=== PATIENT | male | born 1965 | race Caucasian/White ===

== ENCOUNTER 2016-04-20 14:56 | Emergency (ER) | payer OTHER ==
[~2016-04-20] VITALS: Ht 167.6 cm; Wt 152.0 kg
[~2016-04-20 14:56] MED LIST: ALBU17I; ASPI81TA82 PO; DIFL500T PO; GLYB1TAB50 PO; HYCOS PO; LEVA750T9 PO; LOVA10TA PO; VENTAER INH; humulin 70/30 SQ
[2016-04-20 15:00] VITALS: BP 116/64; PULSE 74; RESP 20; TEMP 98
[2016-04-20] MEDS ORDERED: METO25TA3 PO (15:20)
[2016-04-20] MEDS ORDERED: EMPA1TAB3 PO (15:20)
[2016-04-20] MEDS ORDERED: PIOG30TA4 PO (15:20)
[2016-04-20] MEDS ORDERED: LOVA40TA PO (15:20)
[2016-04-20] MEDS ORDERED: LISI10TA3 PO (15:20)
[2016-04-20] MEDS ORDERED: BUME1TAB PO (15:20)
[2016-04-20] MEDS ORDERED: ALBUAER3 INH (15:20)
[2016-04-20] MEDS ORDERED: NOVOLOGP2 SQ (15:20)
[2016-04-20] MEDS ORDERED: ASPI1TAB69 PO (15:20)
[2016-04-20] MEDS ORDERED: DIAZEPAM 5 MG TAB PO ONE (15:45)
[2016-04-20] MEDS ORDERED: KETOROLAC TROMETHAMINE 60 MG/2 ML (IM) VIAL IM ONE (15:45)
--- NOTE | 2016-04-20 15:50 | PD ---
HPI Chief Complaint: Injury Time Seen by Provider: 15:28 Travel History International Travel<30 days: No Contact w/Intl Traveler<30days: No Traveled to known affect area: No History of Present Illness HPI 51yo M with PMH of IDDM presents to the ED with c/o right sided rib pain s/p slip and fall on edge of tub at 11am today. States he was getting out of shower and accidently slipped and fell on right side. Denies any head trauma, LOC, dizziness, chest pain, sob, n/v, abdominal pain, focal weakness or numbness. Pt is able to get up himself but there is pain with deep breathing. PFSH Past Medical History Asthma: Yes High Cholesterol: Yes Diabetes: Yes Patient Takes Glucophage: No Diminished Hearing: No Immunizations Current: Yes Influenza Vaccination: No Past Surgical History Surgical History: No Previous Surgery Social History Alcohol Use: No Tobacco Use: No Substance Use: No Allergies-Medications (Allergen,Severity, Reaction): Coded Allergies: No Known Allergies (Verified , 06/09/11) Reported Meds & Prescriptions Reported Meds & Active Scripts Active Reported Novolog Inj (Insulin Aspart) 1,000 Unit/10 Ml Vial 100 SQ DIRECTED Sliding Scale as directed. Bumetanide 1 Mg Tab 1 Mg PO DAILY Proair Hfa 8.5 GM Inh (Albuterol Sulfate) 90 Mcg/Act Aer 2 Puff INH Q6H PRN 108 mcg/actuation Aspirin 81 Mg Tabdr 81 Mg PO DAILY Lovastatin 40 Mg Tab 40 Mg PO HS Metoprolol Tartrate 25 Mg Tab 12.5 Mg PO BID Lisinopril 10 Mg Tab 10 Mg PO DAILY Pioglitazone (Pioglitazone HCl) 30 Mg Tab 30 Mg PO DAILY Jardiance (Empagliflozin) 25 Mg Tab 25 Mg PO DAILY Review of Systems Except as stated in HPI: all other systems reviewed are Neg Physical Exam Narrative GENERAL: 51yo M not in distress. SKIN: Warm and dry. HEAD: Atraumatic. Normocephalic. EYES: Pupils equal and round. No scleral icterus. No injection or drainage. ENT: No nasal bleeding or discharge. Mucous membranes pink and moist. NECK: No midline ttp cervical spine. CARDIOVASCULAR: Regular rate and rhythm. No murmur appreciated. RESPIRATORY: No accessory muscle use. Clear to auscultation. Breath sounds equal bilaterally. GASTROINTESTINAL: Abdomen soft, non-tender, nondistended. Hepatic and splenic margins not palpable. MUSCULOSKELETAL: Right midclavicular T4 ttp. No crepitus. No ecchymoses or erythema. NEUROLOGICAL: Awake and alert. No obvious cranial nerve deficits. Motor grossly within normal limits. Normal speech. PSYCHIATRIC: Appropriate mood and affect; insight and judgment normal. Data Data Last Documented VS Vital Signs Date Time Temp Pulse Resp B/P Pulse Ox O2 Delivery O2 Flow Rate FiO2 04/20/16 16:38 78 16 125/62 99 04/20/16 15:00 98.0 Orders Ribs, Uni (W/Exp Cxr-Min 3vw) (04/20/16 ) Diazepam (Valium) (04/20/16 15:45) Ketorolac Inj (Toradol Inj) (04/20/16 15:45) Lidocaine 5% Patch.12 Hr (Lidoderm 5% Pa (04/20/16 17:00) Resp Incentive Spirometry (04/20/16 ) MDM Medical Decision Making Medical Screen Exam Complete: Yes Emergency Medical Condition: Yes Differential Diagnosis Fracture vs. contusion Narrative Course 51yo M with right rib pain s/p slip and fall in the shower today. Xray right ribs show fracture of 3-6 ribs on the right of indeterminate age. No PTX. Pt given valium 5mg PO and toradol 30mg IM. Pt reevaluated at bedside and states pain is improved if he does not move. Does any SOB. Discussed with trauma surgeon Dr. Anand and he states that he can follow up with him as an outpatient. Lidoderm patch placed and pt given incentive spirometer. Strict return precautions given to his and him. Diagnosis Primary Impression: Rib fractures Qualified Code: S22.41XA - Closed fracture of multiple ribs of right side, initial encounter Referrals: Maryan Douglas MD 1 day Multiple rib fractures s/p fall Patient Instructions: General Instructions Departure Forms: Tests/Procedures Additional Instructions: Please return to the ED if you have shortness of breath, chest pain, worsening pain or any other concerning symptoms. Med/Other Pt SpecificInfo: Prescription(s) given Scripts Oxycodone-Acetaminophen (Percocet)5-325 mg Tab1 Tab PO Q6H PRN (PAIN) #6 TAB Ref 0 Prov:Smiley Spangler DO 04/20/16 Disposition: 01 DISCHARGE HOME Condition: Stable Smiley Spangler DO Apr 20, 2016 15:50
[2016-04-20 16:38] VITALS: BP 125/62; PULSE 78; RESP 16; O2SAT 99
--- NOTE | 2016-04-20 16:47 | RADHPO ---
EXAM DATE/TIME: 04/20/2016 16:21 [facility] COMPARISON: No previous studies available for comparison. INDICATIONS : Fall, right chest wall pain MEDICAL HISTORY : Diabetes mellitus type II. SURGICAL HISTORY : None. ENCOUNTER: Initial ACUITY: 1 day PAIN SCORE: 10/10 LOCATION: Right FINDINGS: Multiple views of the right ribs were performed. There are fractures of the 3-6 ribs on the right. N o pneumothorax. Expiratory view of the chest is negative for pneumothorax. The mediastinal structure s are midline. CONCLUSION: Fracture of 3-6 ribs on the right of indeterminate age. Oscar Conner MD on April 20, 2016 at 16:43 Board Certified Radiologist. This report was verified electronically.
[2016-04-20] MEDS ORDERED: LIDOCAINE HCL 5% PATCH TD ONE (17:00)
[2016-04-20] MEDS ORDERED: PERC5TAB12 PO (17:31)
== END 2016-04-20 17:37 | disposition home or self-care (01) ==
LOC: PHED 14:56
DX: S22.41XA Multiple fractures of ribs, right side, initial encounter for closed fracture (principal); W18.2XXA Fall in (into) shower or empty bathtub, initial encounter
CPT/HCPCS: 71101; 94150; 96372; 99283; J1885